=== PATIENT | male | born 1980 | race Caucasian/White ===

== ENCOUNTER → 2018-11-28 12:04 | Day surgery (SDC) | payer OTHER ==
[~2018-11-28 12:04] MED LIST: Acetaminophen TAB* 325 MG PO PRN; Buffered Lidocaine 1% SYRIN* 1 ML/SYRINGE INTRADERM ONE; Dexamethasone IV* 4 MG/ML 1 ML (4 MG) ONE; DiMENhydriNATE IV* 50 MG/ML VIAL IV PUSH PRN; Ketorolac INJ* 30 MG/ML 1 ML VIAL ONE; Lactated Ringers 1000 ML Bag* 1,000 ML IV SCH; Lidocaine 2% EPI 1:200000 MPF*10-20 ML VIAL ONE; Lidocaine 2% PF * 5 ML VIAL ONE; Metoclopramide IV* 5 MG/ML 2 ML VIAL ONE; Midazolam* 1 MG/ML 2 ML VIAL (2 MG) ONE; Naloxone* 0.4 MG/ML 1 ML VIAL IV PRN; Ondansetron INJ* 2 MG/ML VIAL ONE; Oxymetazoline 0.05% NASAL SPR* 15 ML BTL ONE; Propofol* 10 MG/ML 20 ML BTL ONE; Succinylcholine* 20 MG/ML 10 ML VIAL ONE; fentaNYL* 50 MCG/ML 2 ML VIAL (100 MCG VIAL) IV PRN; fentaNYL* 50 MCG/ML 2 ML VIAL (100 MCG VIAL) ONE; oxyCODONE TAB* 5 MG TAB PO PRN
[2018-11-28 16:10] VITALS: BP 129/87
--- NOTE | 2018-11-28 22:03 | OP ---
DATE OF OPERATION: 11/28/18 - SDS DATE OF : 80 SURGEON: Jose Mccullough MD PRE-OP DIAGNOSIS: Deviated nasal septum with hypertrophy of the nasal turbinates causing nasal dyspnea. POST-OP DIAGNOSIS: Deviated nasal septum with hypertrophy of the nasal turbinates causing nasal dyspnea. OPERATIVE PROCEDURE: Septoplasty with submucosal resection of inferior turbinates. BRIEF HISTORY: This pleasant 37-year-old gentleman with longstanding history of nasal dyspnea, obvious deviated nasal septum, tried nasal medication without improvement. DESCRIPTION OF PROCEDURE: The patient was taken to the operating room, general anesthetic was given, patient intubated. Nose was decongested with Afrin placed pledgets. Subsequently, 2% lidocaine with epinephrine was infiltrated in the mucosa of both sides of the septum and in the inferior turbinate region. Right hemitransfixion incision was created. Mucoperichondrial flap was elevated. The quadrangular cartilage was disarticulated along the vomer ethmoidal complex posteriorly and along the maxillary crest inferiorly. Portion of the crest and a portion of the inferior bent cartilage was removed allowing the cartilage to swing slightly. Then the vomer ethmoid cartilage bone was disarticulated and then portions of the large septal spur was resected out. Triangular cartilage was then placed into the midline curve. Concave surface was then scored. Midline portion was secured with multiple mattress sutures of chromic. Subsequently, the hemitransfixion incision was closed in a single layer. Small Alphonse splint was applied for stability. Next, we turned our attention to the inferior turbinates. Small mucosal incision was made in the mucosa. Submucosal resection was carried out. Hemostasis was then obtained by using bipolar cautery within the submucosal tissue. Once adequate hemostasis was obtained and a small nasal dressing was applied, the patient was awakened, extubated, and sent to Recovery in stable condition. Instrument and sponge counts correct. Blood loss minimal. [id number]/[facility] #: [id number] [facility]
== END | disposition home or self-care (01) ==
LOC: OR 12:04
PROVIDERS: ATTEND Otolaryngology
PROC: 09SM0ZZ Reposition Nasal Septum, Open Approach (ICD-10-PCS; principal; 2018-11-28 13:45)
DX: J34.2 Deviated nasal septum (principal); J34.3 Hypertrophy of nasal turbinates; G47.33 Obstructive sleep apnea (adult) (pediatric)
CPT/HCPCS: A9270-GY; J0330; J1100; J1885; J2250; J2405; J2704; J2765; J3010